=== PATIENT | male | born 1980 | race Caucasian/White ===

== ENCOUNTER 2024-03-27 10:28 | Emergency (ER) | payer OTHER, SELFPAY ==
[2024-03-27 11:22] VITALS: BP 172/113; PULSE 78; RESP 18; TEMP 36.9; O2SAT 98; BMI 27.3
--- OUTSIDE RECORDS SUMMARY | 2024-03-27 14:50 | XMS_ITS | Clinical Summary ---
Author Organization [facility] Address [address] [place] [phone] Phone Care Team Providers Care Procurement Forester Name Role Phone Pcp, None MD Primary Care Provider Unavailabl e Allergies No known active allergies Medications Medication Sig Dispensed Refills Start Date End Date Status cloNIDine (CATAPRES) 0.2 MG tablet Take 0.2 mg by mouth every 6 (six) hours as needed Active hydrOXYzine (VISTARIL) 100 MG capsule Take 100 mg by mouth 3 (three) times a day as needed for itching Active buprenorphine-naloxone (SUBOXONE) 8-[address] 3 tablets under the tongue daily Active Active Problems Problem Noted Date Diagnosed Date Hyperglycemia 02/20/2019 Fatigue 02/20/2019 Social History Tobacco Use Types Packs/Day Years Used Date Smoking Tobacco: Some Days Cigarettes Smokeless Tobacco: Never Alcohol Use Standard Drinks/Week Comments Yes 0 (1 standard drink = 0.6 oz pur e alcohol) Sex and Gender Information Value Date Recorded Sex Assigned at Not on file Gender Identity Not on file Sexual Orientation Not on file Last Filed Vital Signs Vital Sign Reading Time Taken Comments Blood Pressure 140/95 02/22/2019 3:36 PM EST Pulse 65 02/22/2019 3:36 PM EST Temperature 36.6 ??C (97.8 ??F) 02/22/2019 3:36 PM ES T Respiratory Rate 18 02/22/2019 3:36 PM EST Oxygen Saturation 97% 02/22/2019 3:36 PM EST Inhaled Oxygen Concentration - - Weight 72 kg (158 lb 11.7 oz) 02/20/2019 11:30 P M EST Height 170.2 cm (5' 7 ) 02/20/2019 11:30 PM EST Body Mass Index 24.86 02/20/2019 11:30 PM EST Plan of Treatment Not on file Advance Directives * Full Code (Latest Code Status on File) Date Activated Date Inactivated Comments 02/20/2019 8:25 PM Care Teams Procurement Forester Relationship Specialty Start Date End Date Pcp, None, PCP - General 02/20/19
--- OUTSIDE RECORDS SUMMARY | 2024-03-27 14:50 | XMS_ITS | Clinical Summary ---
Author Organization [facility] Address [address] [place] [address] Care Team Providers Care Wood Preparation Supervisor Name Role Phone Zulma Clark MD Primary Care Provider [phone] Allergies No known active allergies Medications doxycycline (Vibramycin) 100 MG capsule Take 100 mg by mouth in the morning and 100 mg before bedtime. Take with at least 8 ounces (large glass) of water, do not lie down for 30 minutes after For 14 days, started 12/16/22. Active Blood Glucose Monitoring Suppl ([employer]Style Lite) w/Device kit 3 Active PHENobarbital (Luminal) 48.6 mg split tablet Take 48.6 mg by mouth in the morning and 48.6 mg at noon and 48.6 mg in the evening and 48.6 mg before bedtime. Active insulin glargine (Semglee) 100 UNIT/ML injection Inject 22 Units under the skin in the morning and 22 Units before bedtime. Active methadone (Dolophine) 10 MG tablet Take 120 mg by mouth 1 (one) time each day. Active Insulin Lispro (HUMALOG SC) Inject under the skin 3 (three) times a day Sliding scale. Active acetaminophen (Tylenol) 500 MG tablet Take 1,000 mg by mouth every 6 (six) hours if needed for mild pain (1-3). Active ibuprofen (Advil,Motrin) 600 MG tablet Take 600 mg by mouth every 6 (six) hours if needed for mild pain (1-3). Active Dicyclomine HCl (BENTYL PO) Take 40 mg by mouth every 6 (six) hours if needed. Active methocarbamol (Robaxin) 750 MG tablet Take 750 mg by mouth in the morning and 750 mg at noon and 750 mg in the evening and 750 mg before bedtime. Active hydrOXYzine HCl (Atarax) 50 MG tablet Take 50 mg by mouth 4 (four) times a day if needed for itching. Active cloNIDine (Catapres) 0.1 MG tablet Take 0.1 mg by mouth 4 (four) times a day if needed (anxiety). Active ondansetron (Zofran) 8 MG tablet Take 8 mg by mouth every 6 (six) hours if needed for nausea or vomiting. Active calcium carbonate (Tums) 500 MG chewable tablet Chew 500 mg 4 (four) times a day if needed for indigestion or heartburn. Active loperamide (Imodium) 2 MG capsule Take 4 mg by mouth 1 (one) time each day if needed for diarrhea Additional 2mg PRN after each loose bowel movement x 6. Active Active Problems No known active problems Social History Tobacco Use Types Packs/Day Years Used Date Smoking Tobacco: Never Assessed Sex and Gender Information Value Date Recorded Sex Assigned at Not on file Legal Sex Male 9:51 AM EDT Gender Identity Not on file Sexual Orientation Not on file Last Filed Vital Signs Vital Sign Reading Time Taken Comments Blood Pressure 119/81 12/17/2022 9:52 AM EDT Pulse 58 12/17/2022 9:52 AM EDT Temperature 37.1 ??C (98.8 ??F) 12/17/2022 9:52 AM ED T Respiratory Rate 16 12/17/2022 9:52 AM EDT Oxygen Saturation 97% 12/17/2022 9:52 AM EDT Inhaled Oxygen Concentration - - Weight 72.6 kg (160 lb) 12/17/2022 9:52 AM EDT Height 167.6 cm (5' 6 ) 12/17/2022 9:52 AM EDT Body Mass Index 25.82 12/17/2022 9:52 AM EDT Plan of Treatment Not on file Insurance [facility] Care Teams Wood Preparation Supervisor Relationship Specialty Start Date End Date Zulma Clark MD [address] [place] [phone] PCP - General [employer] Network Architect 12/17/22
--- OUTSIDE RECORDS SUMMARY | 2024-03-27 14:50 | XMS_ITS | Clinical Summary ---
Author Organization [facility] Address [address] [facility] Main Number: [phone] (23/09) [place] [address] Care Team Providers Care Drying Oven Attendant Name Role Phone Zulma Bone MD Primary Care Provider [phone] Zulma Bone MD Unavailable Allergies No known active allergies Medications Medication Sig Dispensed Refills Start Date End Date Status ibuprofen (ADVIL,MOTRIN) 600 mg tablet Take 1 tablet (600 mg total) by mouth every 8 (eight) hours as needed. 30 tablet 12/24/2023 Active benzonatate (TESSALON) 100 mg capsule Take 1 capsule (100 mg total) by mouth 3 (three) times a day as needed for cough. Swallow capsule(s) whole; do NOT chew, break or empty contents of the capsule. 30 capsule 12/24/2023 Active insulin glargine 100 unit/mL (LANTUS) vial Inject 22 Units under the skin 2 (two) times a day for 30 days. 13.2 mL 12/30/2023 Active insulin lispro 100 units/mL (HUMALOG) PEN Inject 10 Units under the skin 3 (three) times a day before meals for 30 days. 9 mL 12/30/2023 Active ULTICARE PEN NEEDLE 32 gauge x 5/32 Ndle 1 each by Miscellaneous route as needed. 90 each 12/31/2023 Active Encounters Date Type Department Care Team Description 12/31/2023 12:28 PM EDT - 12/31/2023 4:57 PM EDT Emergency [facility] [place] [address] [place] [id number] Aditi Arora MD Leigh Ann Austin MD Hyperglycemia (Primary Dx) Discharge Disposition: Another Health Care Institution Not Defined 12/31/2023 2:40 AM EDT - 12/31/2023 8:07 AM EDT Emergency [facility] [place] [address] [place] [address] Discharge Disposition: Eloped 12/31/2023 Travel 12/30/2023 8:27 AM EDT - 12/30/2023 2:18 PM EDT Emergency [facility] [place] [address] [place] [address] Kasi Graham DO Acute cough (Primary Dx) Discharge Disposition: Home or Self Care 12/30/2023 Travel 12/29/2023 9:55 PM EDT - 12/30/2023 6:26 AM EDT Emergency [facility] [place] [address] [place] [address] Avril Cifuentes MD Hyperglycemia (Primary Dx) Discharge Disposition: Home or Self Care 12/26/2023 3:07 PM EDT - 12/26/2023 5:25 PM EDT Emergency [facility] [place] [address] [place] [address] Discharge Disposition: LWOBS from Last 3 Months Social History Tobacco Use Types Packs/Day Years Used Date Smoking Tobacco: Every Day Cigarettes Smokeless Tobacco: Never Tobacco Cessation:Ready to Q uit: Not Asked; Counseling Given: Not Answered Alcohol Use Standard Drinks/Week Comments Never 0 (1 standard drink = 0.6 oz pur e alcohol) Housing Answer Date Recorded What is your living situation today? I d on't have a steady place to live (living with others, hotel, assisted, outside on the street, on a bench, in a car, abandoned building, bus or train station, in a park) 12/30/2023 Medications Answer Date Recorded Do you have trouble paying f or prescriptions? Patient declined to answer 12/30/2023 Utilities Answer Date Recorded Do you have trouble paying f or utilites (heat, electricity, internet, or phone bill)? Patient declined to answer 12/30/2023 Food Answer Date Recorded Within the past 12 months, w ere you worried whether your food would run out before you got money to buy more? Patient declined to answer 12/30/2023 Not on file 12/30/2023 Transportation Answer Date Recorded Do you have trouble getting transportation to medical appointments? Patient declined to answer 12/30/2023 Sex and Gender Information Value Date Recorded Sex Assigned at Male 12/22/2023 4:11 AM EDT Gender Identity Male 12/22/2023 4:11 AM EDT Sexual Orientation Straight 12/22/2023 4: 11 AM EDT Last Filed Vital Signs Vital Sign Reading Time Taken Comments Blood Pressure 133/78 12/31/2023 4:22 PM EDT Pulse 55 12/31/2023 4:22 PM EDT Temperature 36.4 ??C (97.6 ??F) 12/31/2023 1:14 PM ED T Respiratory Rate 15 12/31/2023 4:22 PM EDT Oxygen Saturation 96% 12/31/2023 4:22 PM EDT Inhaled Oxygen Concentration - - Weight 72 kg (158 lb 11.7 oz) 12/31/2023 12:03 P M EDT Height 170 cm (5' 6.93 ) 12/31/2023 12:03 PM EDT Body Mass Index 24.91 12/31/2023 12:03 PM EDT Plan of Treatment Health Maintenance Due Date Last Done Comments HIV Lifetime Screening 1981 Hepatitis B sAg Lifetime Screening 1981 LIPID PANEL 1981 THRIVE SCREENING 1981 Tobacco Cessation Counseling (#1) 1981 Oral Health Screen 1981 HEIP Disability Screen 1986 Pneumonia Vaccine 0-64 (1 of 2 - PCV) 1987 BEHAVIORAL HEALTH SCREEN 1993 Psych Substance Use Screen 1993 DTAP/TDAP VACCINE (1 - Tdap) 01/03/2000 COVID-19 Vaccine (3 - season) 2023 10/16/2020, 05/17/2020 INFLUENZA VACCINE (#1) 2023 Zoster Vaccine (1 of 2) 2031 Hepatitis C Antibody Lifetime Screening Completed 12/31/2023, 07/03/2022 HPV VACCINES Aged Out No longer eligi ble based on patient's age to complete this topic IPV VACCINES Aged Out No longer eligi ble based on patient's age to complete this topic ROTAVIRUS VACCINES Aged Out No longer eligible based on patient's age to complete this topic Procedures Procedure Name Priority Date/Time Associated Diagnosis Comments POCT GLUCOSE 12/31/2023 4:10 PM EDT POCT GLUCOSE 12/31/2023 2:42 PM EDT URINALYSIS WITH MICROSCOPIC Nursing - STAT 12/31/2023 1:55 PM EDT URINE CULTURE STAT 12/31/2023 1:55 PM EDT HCV CONFIRMATORY AND VIRAL LOAD, RNA, PCR 12/31/2023 1:03 PM EDT VENOUS BLOOD GAS W/ LYTES (ED) Nursing - STAT 12/31/2023 1:03 PM EDT HCV AB REFLEX TO CONFIRMATORY/VIRAL LOAD AND GENOTYPE Nursing - STAT 12/31/2023 1:03 PM EDT COMPREHENSIVE METABOLIC PANEL Nursing - STAT 12/31/2023 1:03 PM EDT CBC AND DIFFERENTIAL Nursing - STAT 12/31/2023 1:03 PM EDT ECG 12-LEAD STAT 12/31/2023 12:50 PM EDT POCT GLUCOSE 12/31/2023 12:11 PM EDT ED PREMANAGE Routine 12/31/2023 11:39 AM EDT POCT GLUCOSE 12/31/2023 2:51 AM EDT ED PREMANAGE Routine 12/31/2023 2:41 AM EDT POCT GLUCOSE 12/30/2023 2:08 PM EDT POCT GLUCOSE 12/30/2023 1:16 PM EDT POCT GLUCOSE 12/30/2023 11:21 AM EDT POCT GLUCOSE 12/30/2023 10:15 AM EDT SARS-COV-2 (COVID-19), INFLUENZA A/B, PCR (POCT) 12/30/2023 9:39 AM EDT XR CHEST PA AND LATERAL STAT 12/30/2023 9:32 AM EDT POCT GLUCOSE 12/30/2023 9:04 AM EDT POCT GLUCOSE 12/30/2023 8:21 AM EDT POINT OF CARE COVID-19 AND FLU A/B PCR SPECIMEN COLLECTION Nursing - STAT 12/30/2023 8:18 AM EDT ED PREMANAGE Routine 12/30/2023 8:05 AM EDT POCT GLUCOSE 12/30/2023 4:50 AM EDT POCT GLUCOSE 12/30/2023 2:56 AM EDT POCT GLUCOSE 12/30/2023 12:43 AM EDT POCT GLUCOSE 12/29/2023 11:38 PM EDT URINALYSIS WITH MICROSCOPIC Nursing - STAT 12/29/2023 11:30 PM EDT LIPASE 12/29/2023 10:29 PM EDT VENOUS BLOOD GAS W/ LYTES (ED) Nursing - STAT 12/29/2023 10:29 PM EDT AMYLASE Nursing - STAT 12/29/2023 10:29 PM EDT COMPREHENSIVE METABOLIC PANEL Nursing - STAT 12/29/2023 10:29 PM EDT CBC AND DIFFERENTIAL Nursing - STAT 12/29/2023 10:29 PM EDT ECG 12-LEAD STAT 12/29/2023 10:28 PM EDT POCT GLUCOSE 12/29/2023 10:22 PM EDT ED PREMANAGE Routine 12/29/2023 1:10 PM EDT ED PREMANAGE Routine 12/26/2023 3:08 PM EDT from Last 3 Months Results * (ABNORMAL) Glucose, Point of Care (12/31/2023 4:10 PM EDT) Only the most recent of15 resultswithin the time period is included. Glucose, Point Of Care 415(HH) 70 - 110 MG/DL 12/31/2023 4:13 PM EDT [facility] Comment: CRITICAL ALERT VALUE. NOTIFIED MD/RN 12/31/2023 4:10 PM EDT 12/31/2023 4:13 PM EDT Leigh Ann Austin MD POCT ORDERABLES - DEVICE [facility] CLIA [id number] [address] [facility] [place] [address], * (ABNORMAL) Urinalysis, Complete with Microscopic (12/31/2023 1:55 PM EDT) Only the most recent of2 resultswithin the time period is included. Color, Urinalysis STRAW 12/31/2023 2:24 PM EDT [facility] Clarity, Urinalysis CLEAR 12/31/2023 2:24 PM EDT [facility] Specific Ceres, Urinalysis 1.027 1.005 - 1.030 12/31/2023 2:24 PM EDT [facility] PH, Urinalysis 6.0 5.0 - 8.0 12/31/2023 2:24 PM EDT [facility] Protein, Urinalysis NEG NEG 12/31/2023 2:24 PM EDT [facility] Glucose, Urinalysis 3+(A) NEG 12/31/2023 2:24 PM EDT [facility] Ketone, Urinalysis TRACE(A) NEG 12/31/2023 2:24 PM EDT [facility] Bilirubin, Urinalysis NEG NEG 12/31/2023 2:24 PM EDT [facility] Blood,Urinalysi s 1+(A) NEG 12/31/2023 2:24 PM EDT [facility] Nitrite, Urinalysis NEG NEG 12/31/2023 2:24 PM EDT [facility] Leukocyte Esterase NEG NEG 12/31/2023 2:24 PM EDT [facility] Urobilinogen, Urinalysis NEG 0.2 - 1.0 MG/DL 12/31/2023 2:24 PM EDT [facility] RBC 0 TO 3 0 TO 3 /HPF 12/31/2023 2:24 PM EDT [facility] WBC 0 TO 5 0 TO 5 /HPF 12/31/2023 2:24 PM EDT [facility] Bacteria NEG NEG /HPF 12/31/2023 2:24 PM EDT [facility] Squamous Epithelial 0 TO 4 0 TO 4 /HPF 12/31/2023 2:24 PM EDT [facility] 12/31/2023 1:55 PM EDT 12/31/2023 2:11 PM EDT Yue Lauren PA-C URINE ORDERABLES [facility] CLIA [id number] [address] [facility] [place] [address], * Urine Culture (12/31/2023 1:55 PM EDT) Specimen Description URINE (CLEAN VOIDED) [facility] Results NO GROWTH AT <1,000 CFU/ML 01/01/2024 8:38 AM EDT [facility] Urine URINE SPECIMEN OBTAINED BY CLEAN CATCH PROCEDURE / Unknown 12/31/2023 1:55 PM EDT 12/31/2023 2:11 PM EDT Yue Lauren PA-C MICROBIOLOGY - GENER AL ORDERABLES Performing Organization Address [facility] Co de Phone Number [facility] CLIA [id number] [place] [id number], [place] * HCV Confirmatory and Viral Load, RNA, PCR (12/31/2023 1:03 PM EDT) [facility] HCV RNA Confirmatory by Real Time PCR No current HCV infection. No current HCV infection. 01/01/2024 1:34 PM EDT [facility] Comment:No further testing i ndicated. HCV RNA Quantitative By Real Time PCR Target Not Detected Target Not Detected IU/mL 01/01/2024 1:34 PM EDT [facility] HCV RNA Quantitative Log Value Target Not Detected Target Not Detected LOG IU/mL 01/01/2024 1:34 PM EDT [facility] Comment: HCV RNA was not detected. Not Detected does not ruleout Hepatitis C virus RNA concentrations below the level of detection of the assay or the presence of PCR inhibitors in the patient specimen. ? This assay is not intended for use as a screening test for the presence of HCV in blood or blood products. Assay method is Alexei Smith 6800 HCV assay. The quantitative range of this assay for a sample without dilution is 15 IU/mL to 100,000,000 IU/mL (1.18 log to 8 log IU/mL). 12/31/2023 1:03 PM EDT 12/31/2023 1:29 PM EDT Yue Lauren PA-C LAB BLOOD ORDERABLES Performing Organization Address [facility] Co de Phone Number [facility] CLIA [id number] [place] [address], * (ABNORMAL) HCV Ab reflex to Confirmatory/Viral load and Genotype (12/31/2023 1:03 PM EDT) Pathologist [facility] Hepatitis C Antibody REACTIVE( A) NON-REACT LADAN 12/31/2023 2:38 PM EDT [facility] Comment:A reactive HCV antib johann result, or an equivocal result, is not a final diagnostic for current HCV infection. See separate result for the reflexed HCV Confirmatory and Viral Load RNA PCR test. 12/31/2023 1:03 PM EDT 12/31/2023 1:29 PM EDT Yue Lauren PA-C LAB BLOOD ORDERABLES [facility] CLIA [id number] [address] [facility] [place] [address], * (ABNORMAL) Venous Blood Gas w/ Lytes (ED) (12/31/2023 1:03 PM EDT) Only the most recent of2 resultswithin the time period is included. Pt Temp, Venous 37.0 DEG C 1:40 PM EDT [facility] Insp O2, Venous NOT AVAILABLE % 2023 1:40 PM EDT [facility] PH Venous 7.37 7.32 - 7.42 12/31/2023 1:40 PM EDT [facility] PCo2, Venous 48.0(H) 35 - 45 MM HG 12/31/2023 1:40 PM EDT [facility] HCo3 Venous 27.7 22 - 29 MMOL/L 12/31/2023 1:40 PM EDT [facility] PO2 Venous 65(H) 30 - 50 MM HG 12/31/2023 1:40 PM EDT [facility] O2 Saturation, Venous 93(H) 65 - 80 % 12/31/2023 1:40 PM EDT [facility] Sodium, Whole Blood Venous 127(L) 135 - 148 MMOL/L 12/31/2023 1:40 PM EDT [facility] Potassium, Whole Blood Venous 5.0 3.5 - 5.3 MMOL/L 12/31/2023 1:40 PM EDT [facility] Comment:For serum, the lower end of the reference range may be higher by 0.2 to 0.4 mmol/L. Chloride, Whole Blood Venous 89(L) 98 - 106 MMOL/L 12/31/2023 1:40 PM EDT [facility] TCO2, Whole Blood Venous 29.2(H) 23 - 29 MMOL/L 12/31/2023 1:40 PM EDT [facility] Hemoglobin, Whole Blood Venous 13.1(L) 13.5 - 18.0 G/DL 12/31/2023 1:40 PM EDT [facility] Comment:The results of this assay should be interpreted in the context of the patient's lzh-obvfobel-rt- and additional relevant clinical and laboratory data. Anion Gap Without Potassium, Venous 10 12/31/2023 1:40 PM EDT [facility] Base Excess,Venous 1.7 MMOL/L 12/31/2023 1:40 PM EDT [facility] Comment:REFERENCE RANGE: (-3 .8 TO +4.2 MMOL/L) Free Calcium, Whole Blood Venous 4.8 4.5 - 5.3 MG/DL 12/31/2023 1:40 PM EDT [facility] Glucose, Whole Blood Venous 722(HH) 70 - 100 MG/DL 12/31/2023 1:57 PM EDT [facility] Comment: TEST PERFORMED BY ALTERNATE METHODOLOGY CRITICAL ALERT VALUE. RESULT CALLED TO AND READ BACK BY: [id number] XIN MATT Venous 12/31/2023 1:03 PM EDT 12/31/2023 1:12 PM EDT Yue Lauren PA-C LAB BLOOD ORDERABLES [facility] CLIA [id number] [address] [facility] [address] * (ABNORMAL) CBC and differential (12/31/2023 1:03 PM EDT) Only the most recent of2 resultswithin the time period is included. WBC 5.3 4.0 - 11.0 K/UL 12/31/2023 1:25 PM EDT [facility] RBC 4.30(L) 4.40 - 5.60 M/UL 12/31/2023 1:25 PM EDT [facility] Comment:The results of this assay should be interpreted in the context of the patient's doe-wkctaglj-lf- and additional relevant clinical and laboratory data. Hemoglobin 12.6(L) 13.5 - 17.5 G/DL 12/31/2023 1:25 PM EDT [facility] Comment:The results of this assay should be interpreted in the context of the patient's puh-egzlbsdo-kv- and additional relevant clinical and laboratory data. Hematocrit 38.9(L) 40.0 - 51.0 % 12/31/2023 1:25 PM EDT [facility] Comment:The results of this assay should be interpreted in the context of the patient's sbh-hmlbgmbp-jf- and additional relevant clinical and laboratory data. MCV 91 80 - 97 FL 12/31/2023 1:25 PM EDT [facility] MCH 29.3 27.0 - 33.0 PG 12/31/2023 1:25 PM EDT [facility] MCHC 32.4 32.0 - 36.0 G/DL 12/31/2023 1:25 PM EDT [facility] Platelet 266 150 - 400 K/UL 12/31/2023 1:25 PM EDT [facility] RBC Dist Width 12.8 12.0 - 14.5 % 12/31/2023 1:25 PM EDT [facility] NRBC (Percent) 0.0 0.0 /100 WBC 12/31/2023 1:25 PM EDT [facility] Absolute NRBC 0.00 0.0 K/UL 12/31/2023 1:25 PM EDT [facility] Poly 61 40 - 75 % 12/31/2023 1:25 PM EDT [facility] Lymph 29 15 - 54 % 12/31/2023 1:25 PM EDT [facility] [place] 7 4 - 13 % 12/31/2023 1:25 PM EDT [facility] Eos 1 0 - 7 % 12/31/2023 1:25 PM EDT [facility] Baso 1 0 - 1 % 12/31/2023 1:25 PM EDT [facility] Absolute Poly 3.2 1.8 - 7.0 K/UL 12/31/2023 1:25 PM EDT [facility] Absolute Lymph 1.5 1.1 - 3.5 K/UL 12/31/2023 1:25 PM EDT [facility] Absolute [place] 0.4 0.2 - 0.9 K/UL 12/31/2023 1:25 PM EDT [facility] Absolute Eos 0.1 0.0 - 0.6 K/UL 12/31/2023 1:25 PM EDT [facility] Absolute Baso 0.0 0.0 - 0.1 K/UL 12/31/2023 1:25 PM EDT [facility] Immature Granulocytes (Percent) 1 0 - 1 % 12/31/2023 1:25 PM EDT [facility] Comment:Immature granulocyte s represents either metamyelocytes myelocytes, promyelocytes, or any combination thereof. Absolute Immature Granulocytes 0.0 0.00 - 0.06 K/UL 12/31/2023 1:25 PM EDT [facility] 12/31/2023 1:03 PM EDT 12/31/2023 1:12 PM EDT Yue Lauren PA-C LAB BLOOD ORDERABLES [facility] CLIA [id number] [address] [facility] [address] * (ABNORMAL) Comprehensive Metabolic Panel (12/31/2023 1:03 PM EDT) Only the most recent of2 resultswithin the time period is included. Pathologist [facility] Albumin 3.8 3.5 - 5.0 G/DL 12/31/2023 1:48 PM EDT [facility] Bilirubin, Total 0.3 0.3 - 1.2 MG/DL 12/31/2023 1:48 PM EDT [facility] Calcium 9.4 8 - 10.5 MG/DL 12/31/2023 1:48 PM EDT [facility] CO2 26.0 19 - 28 MMOL/L 12/31/2023 1:48 PM EDT [facility] Comment:Elevated triglycerid e levels (>1000 mg/dL) may cause falsely low bicarbonate results. If clinically indicated, a venous blood gas should be ordered to confirm the bicarbonate result. Chloride 89(L) 98 - 110 MMOL/L 12/31/2023 1:48 PM EDT [facility] Glucose 730(HH) 70 - 100 MG/DL 12/31/2023 1:48 PM EDT [facility] Comment: CRITICAL ALERT VALUE. RESULT CALLED TO AND READ BACK BY: BULMARO ??NAT ESTRADA AT 1345 XT [id number] Alkaline Phosphatase, Total 74 25 - 100 U/L 12/31/2023 1:48 PM EDT [facility] Comment:The results of this assay should be interpreted in the context of the patient's tpj-cxngtfyn-pg- and additional relevant clinical and laboratory data. Potassium 4.7 3.1 - 5.3 MMOL/L 12/31/2023 1:48 PM EDT [facility] Comment:For serum, the lower end of the reference range may be higher by 0.2 to 0.4 mmol/L. Protein, Total 7.6 6.8 - 8.6 G/DL 12/31/2023 1:48 PM EDT [facility] Sodium 128(L) 135 - 145 MMOL/L 12/31/2023 1:48 PM EDT [facility] ALT(SGPT) 20 9.0 - 67.0 U/L 12/31/2023 1:48 PM EDT [facility] AST(SGOT) 22 13 - 39 U/L 12/31/2023 1:48 PM EDT [facility] Urea Nitrogen (BUN) 19 7 - 25 MG/DL 12/31/2023 1:48 PM EDT [facility] Creatinine 1.25 0.7 - 1.3 MG/DL 12/31/2023 1:48 PM EDT [facility] Comment:The results of this assay should be interpreted in the context of the patient's vtp-dglqagrn-ss- and additional relevant clinical and laboratory data. Estimated GFR 74 >59 mL/min/1.7 3_m2 12/31/2023 1:48 PM EDT [facility] Comment: The calculation of eGFR utilizes the 2020 CKD-EPI creatinine equation. eGFR estimates can be inaccurate and may vary from the true level of kidney function. Specific populations in which an eGFR value may be inaccurate or biased include: acute kidney injury, , extremes of muscle mass, age greater than 80 years old. The results of this assay should be interpreted in the context of the patient's xbo-yobzotwk-qr- and additional relevant clinical and laboratory data. Anion Gap Without Potassium 13 7 - 16 12/31/2023 1:48 PM EDT [facility] 12/31/2023 1:03 PM EDT 12/31/2023 1:12 PM EDT Yue Xin PA-C LAB BLOOD ORDERABLES Performing Organization Address [facility] Co de Phone Number [facility] CLIA [id number] [address] [facility] [place] [address], * (ABNORMAL) ECG 12 lead (12/31/2023 12:50 PM EDT) Only the most recent of2 resultswithin the time period is included. Ventricular Rate 55 BPM MUSE Atrial Rate 55 BPM MUSE P-R Interval 140 ms MUSE QRS Duration 86 ms MUSE QT Interval 502 ms MUSE QTC Calculation(Bez et) 480 ms MUSE P [place] 45 degrees MUSE R [place] 65 degrees MUSE T [place] 48 degrees MUSE Diagnosis I51.7 ICD-10 code for Right & Left ventricular hypertrophy Sinus bradycardia Minimal voltage criteria for LVH, may be normal variant Prolonged QT Abnormal ECG When compared with ECG of 29-Dec-2023 22:28, No significant change was found (A) MUSE 12/31/2023 12:5 0 PM EDT 2024 9:29 AM EDT Yue Lauren PA-C ECG ORDERABLES Performing Organization Address [facility] Co de Phone Number MUSE * ED PreManage (12/31/2023 11:39 AM EDT) Only the most recent of5 resultswithin the time period is included. Pathologist [facility] ED PreManage KAVITHA NOTIFICATION: DORENE WAGGONER Security Events No recent Security Events currently on file CARE PROVIDERS Name ?Phone ?Type ?Service Dates ---- ?----- ?---- ? LAI COLLINS ? [phone] ? Family Medicine ? Unknown - Current VANITA THOMAS ?[id number] ? Emergency Medicine ?Unknown - Current JonathonGuyZULMA ROBERSON ? [id number] ? Family Medicine ? Unknown - Current LULA LOPEZ ?[phone] ? Emergency Medicine ?Unknown - Current ED/UCC VISIT TRACKING (3 MO.) Visit Date ?Location ?City ST ?Type ? Dx/Complaint ?-------- ?------- ?---- ? 12/31/2023 11:39 ?[facility] ? [place] ?Emergency ?-MED CLEAR DETOX 12/31/2023 02:40 ?[facility] ? [place] ?Emergency ?-MIGRAINE 12/30/2023 08:27 ?[facility] ? [place] ?Emergency ?-Acute cough ?-Cough ?-HEAD COLD PHLEM ?-High Blood Sugar- No Symptoms 12/29/2023 21:55 ?[facility] ? [place] ?Emergency ?-CANT KEEP ANYTHING DOWN ?-Emesis 12/29/2023 21:55 ?[facility] ? [place] ?Emergency ?-Hyperglycemia, unspecified 12/26/2023 15:07 ?[facility] ? [place] ?Emergency ?-MED REFILL 12/23/2023 20:59 ?[facility] ? [place] ?Emergency ?-Pneumonia, unspecified organism ?-Cold Like Symptoms ?-MEDICAL PROBLEM 12/23/2023 00:56 ?[facility] ?[place]. [place] ?Emergency ?-Other psychoactive substance use, unspecified, ?uncomplicated ?-Pneumonia, unspecified organism ?-detox and febrile ?-eval/ 12/22/2023 01:42 ?[facility] ? [place] ?Emergency ?-Viral infection, unspecified ?-Cough ?-Headache- New Onset Or New Symptoms ?-MEDICAL PROBLEM 10/12/2023 03:28 ?[facility] ?[place]. [place] ?Emergency ?-Nicotine dependence, unspecified, uncomplicated ?-Palpitations INPATIENT VISIT TRACKING (1 MO.) Visit Date ?Location ?City ST ?Type ?Dx/Complaint ?-------- ?------- ?---- ? ED VISIT COUNT (12 MO.) Visits ?Location ------ ?--------- 8 ? [facility] 1 ? [facility] 1 ? [facility] 1 ? [facility] 1 ? [facility] 12 ?Total Note: Visits indicate total known visits. -----Kavitha has no Care Guidelines for this patient. [email or web address] PREMANAGE 12/31/2023 11:3 9 AM EDT Unidentified Provider [facility] PRE[facility]NA[facility] N OTIFICATION PREMANAGE * SARS-CoV-2 (COVID-19), Influenza A/B, PCR (POCT) (12/30/2023 9:39 AM EDT) Source Anterior Nares 12/30/2023 9:38 AM EDT [facility] SARS-CoV-2 (COVID-19), Point of Care Negative Negative 12/30/2023 9:38 AM EDT [facility] Comment: The performance of this assay has not been validated for the screening of asymptomatic persons. Negative results do not preclude SARS-Cov-2 infection and should not be used as the sole basis for treatment or other patient management decisions. [facility] is certified under CLIA88 as a high-complexity laboratory experienced in the use of in vitro molecular diagnostic assays and procedures. The Smith SARS-CoV-2 Nucleic Acid Test for use on the Smith Carol System is also authorized for use at the Point of Care (POC), i.e., inpatient care settings operating under a CLIA Certificate of Waiver, Certificate of Compliance, or Certificate of Accreditation. This test was performed by the Smith SARS-CoV-2 Nucleic Acid Test for use on the Smith Carol System. Influenza A, Point of Care Negative Negative 12/30/2023 9:38 AM EDT [facility] Influenza B, Point of Care Negative Negative 12/30/2023 9:38 AM EDT [facility] 12/30/2023 9:39 AM EDT 12/30/2023 9:38 AM EDT Kasi Graham DO BODY FLUIDS AND STOO LS ORDERABLES [facility] CLIA [id number] [address] [facility] [place] [address], * XR Chest, 2 View (12/30/2023 9:32 AM EDT) Anatomical Region Laterality Modality Chest Computed Radiogr aphy 12/30/2023 9:34 AM EDT Impressions 12/30/2023 9:34 AM EDT No active chest disease. I personally reviewed the study and agree with the dictated report. Electronically signed by: Ayse Bowser M.D. Signed date and time: 12/30/2023 9:34 AM Narrative 12/30/2023 9:34 AM EDT EXAMINATION: Chest, 2 views HISTORY: cough with productive sputum TECHNIQUE: PA and Lateral views. COMPARISON: 12/23/2023, XR CHEST PA AND LATERAL FINDINGS: Lines and tubes: None. Heart and mediastinum: Normal. Lungs and pleura: Lungs are clear. No pneumothorax. No pleural effusions. Bones: No acute osseous abnormality. Procedure Note Ayse Bowser MD - 12/30/2023 EXAMINATION: Chest, 2 views HISTORY: cough with productive sputum TECHNIQUE: PA and Lateral views. COMPARISON: 12/23/2023, XR CHEST PA AND LATERAL FINDINGS: Lines and tubes: None. Heart and mediastinum: Normal. Lungs and pleura: Lungs are clear. No pneumothorax. No pleuraleffusions. Bones: No acute osseous abnormality. IMPRESSION: No active chest disease. I personally reviewed the study and agree with the dictated report. Electronically signed by: Ayse Bowser M.D. Signed date and time: 12/30/2023 9:34 AM Tricia Reddy PA-C IMG DIAGNOSTIC IMAGI NG ORDERABLES * Point of Care COVID-19 and Flu A/B PCR Specimen Collection (12/30/2023 8:18 AM EDT) Comment Please see separate SARS-CoV-2 (COVID-19), INFLUENZA A/B, Point of Care testing report for this date. 12/30/2023 10:02 AM EDT [facility] Anterior Nares 12/30/2023 8: 18 AM EDT 12/30/2023 8:25 AM EDT Kasi Graham DO BODY FLUIDS AND STOO LS ORDERABLES [facility] CLIA [id number] [address] [facility] [address] [place] [address], * (ABNORMAL) Lipase (12/29/2023 10:29 PM EDT) Lipase <4(L) 13 - 64 U/L 12/29/2023 11:32 PM EDT [facility] 12/29/2023 10:2 9 PM EDT 12/29/2023 10:32 PM EDT Abdifatah Meza MD LAB BLOOD ORDERABLES [facility] CLIA [id number] [place] [address], * (ABNORMAL) Amylase (12/29/2023 10:29 PM EDT) Amylase 22(L) 26 - 131 U/L 12/29/2023 11:32 PM EDT [facility] 12/29/2023 10:2 9 PM EDT 12/29/2023 10:32 PM EDT Avril Cifuentes MD LAB BLOOD ORDERABLES Performing Organization Address [facility] Co de Phone Number [facility] CLIA [id number] [place] [address], [place] from Last 3 Months Care Teams Drying Oven Attendant Relationship Specialty Start Date End Date Zulma Bone MD [address] [place] [address] PCP - General 07/03/22 Zulma Bone MD [address] [place] [address] PCP - Insurance 07/03/22
--- OUTSIDE RECORDS SUMMARY | 2024-03-27 14:50 | XMS_ITS | Referral Summary ---
Author Organization [facility] Address [address] [facility] Main Number: [phone] (23/09) [place] [address] Care Team Providers Care Chain Splitter Name Role Phone Zulma Bone MD Primary Care Provider [phone] Zulma Bone MD Unavailable Encounters Date Type Department Care Team Description 12/31/2023 12:28 PM EDT - 12/31/2023 4:57 PM EDT Emergency [facility] Emergency Department [address] [place] [address] [facility], [place] Leigh Ann Hyperglycemia (Primary Dx) Discharge Disposition: Another Health Care Institution Not Defined 12/31/2023 Travel 12/31/2023 2:40 AM EDT - 12/31/2023 8:07 AM EDT Emergency [facility] Emergency Department [address] [place] [address] Discharge Disposition: Eloped 12/30/2023 Travel 12/30/2023 8:27 AM EDT - 12/30/2023 2:18 PM EDT Emergency [facility] Emergency Department [address] [place] [address] Kasi Graham DO Acute cough (Primary Dx) Discharge Disposition: Home or Self Care 12/29/2023 9:55 PM EDT - 12/30/2023 6:26 AM EDT Emergency [facility] Emergency Department [address] [place] [address] Avril Cifuentes MD Hyperglycemia (Primary Dx) Discharge Disposition: Home or Self Care 12/26/2023 3:07 PM EDT - 12/26/2023 5:25 PM EDT Emergency [facility] Emergency Department [address] [place] [address] Discharge Disposition: LWOBS from Last 3 Months Allergies No known active allergies Medications Medication [...] route as needed. 90 each 12/31/2023 Active Social History Tobacco Use Types Packs/Day Years [...] place to live (living with others, hotel, residential, outside on the street, on a bench, [...] 12/31/2023 12:03 PM EDT Plan of Treatment Not on file Procedures Procedure Name Priority Date/Time Associated Diagnosis [...] of15 resultswithin the time period is included. [facility] Glucose, Point Of Care 415(HH) 70 - 110 MG/DL 12/31/2023 4:13 PM EDT [facility] Comment: CRITICAL ALERT VALUE. NOTIFIED MD/RN 12/31/2023 4:10 PM EDT 12/31/2023 4:13 PM EDT Leigh Ann Austin MD POCT ORDERABLES - DEVICE [facility] CLIA [id number] [address] [facility] [place] [address], [place] * (ABNORMAL) Urinalysis, Complete with Microscopic (12/31/2023 1:55 PM EDT) Only the most recent of2 resultswithin the time period is included. Color, Urinalysis STRAW 12/31/2023 2:24 PM EDT [facility] Clarity, Urinalysis CLEAR 12/31/2023 2:24 PM EDT [facility] Specific Melvin, Urinalysis 1.027 1.005 - 1.030 12/31/2023 2:24 [...] 1:55 PM EDT 12/31/2023 2:11 PM EDT Shaka Lauren PA-C URINE ORDERABLES Performing Organization Address City/[facility] Co de Phone Number [facility] CLIA [id number] [place] [address], * Urine Culture (12/31/2023 1:55 PM EDT) Specimen Description URINE (CLEAN VOIDED) [facility] Results NO GROWTH AT <1,000 CFU/ML 01/01/2024 8:38 AM EDT [facility] Urine URINE SPECIMEN OBTAINED BY CLEAN CATCH PROCEDURE / Unknown 12/31/2023 1:55 PM EDT 12/31/2023 2:11 PM EDT Shaka Lauren PA-C MICROBIOLOGY - GENER AL ORDERABLES Performing Organization Address [facility] Co de Phone Number [facility] CLIA [id number] [place] [address], * HCV Confirmatory and Viral Load, RNA, PCR (12/31/2023 1:03 PM EDT) HCV RNA Confirmatory by Real Time PCR [...] 1:03 PM EDT 12/31/2023 1:29 PM EDT Shaka Lauren PA-C LAB BLOOD ORDERABLES Performing Organization Address [facility] de Phone Number [facility] CLIA [id number] [place] [address], * (ABNORMAL) HCV Ab reflex to Confirmatory/Viral load and Genotype (12/31/2023 1:03 PM EDT) [facility] Hepatitis C Antibody REACTIVE( A) NON-REACT LADAN 12/31/2023 2:38 PM EDT [facility] Comment:A reactive HCV antib johann result, or an equivocal result, is not a final diagnostic for current HCV infection. See separate result for the reflexed HCV Confirmatory and Viral Load RNA PCR test. 12/31/2023 1:03 PM EDT 12/31/2023 1:29 PM EDT Shaka Lauren PA-C LAB BLOOD ORDERABLES Performing Organization Address [facility] de Phone Number [facility] CLIA [id number] [place] [address], * (ABNORMAL) Venous Blood Gas w/ Lytes (ED) (12/31/2023 1:03 PM EDT) Only the most recent of2 resultswithin the time period is included. Pathologist [facility] Pt Temp, Venous 37.0 DEG C 1:40 [...] interpreted in the context of the patient's zau-libvsijp-zt- and additional relevant clinical and laboratory data. [...] RESULT CALLED TO AND READ BACK BY: [id number] JENNIFER SHAKA Venous 12/31/2023 1:03 PM EDT 12/31/2023 1:12 PM EDT Shaka Lauren PA-C LAB BLOOD ORDERABLES [facility] CLIA [id number] [address] [facility] [place] [address], [place] * (ABNORMAL) CBC and differential (12/31/2023 1:03 PM EDT) Only the most recent of2 resultswithin the time period is included. WBC 5.3 4.0 - 11.0 K/UL 12/31/2023 1:25 PM EDT [facility] RBC 4.30(L) 4.40 - 5.60 M/UL 12/31/2023 1:25 PM EDT [facility] Comment:The results of this assay should be interpreted in the context of the patient's tci-lerhkvyv-zo- and additional relevant clinical and laboratory data. Hemoglobin 12.6(L) 13.5 - 17.5 G/DL 12/31/2023 1:25 PM EDT [facility] Comment:The results of this assay should be interpreted in the context of the patient's grt-gxwoytve-cz- and additional relevant clinical and laboratory data. Hematocrit 38.9(L) 40.0 - 51.0 % 12/31/2023 1:25 PM EDT [facility] Comment:The results of this assay should be interpreted in the context of the patient's abh-psgmcgji-xq- and additional relevant clinical and laboratory data. [...] 54 % 12/31/2023 1:25 PM EDT [facility] [place] 7 4 - 13 % 12/31/2023 1:25 PM EDT [facility] Eos 1 0 - 7 % 12/31/2023 1:25 PM EDT [facility] Baso 1 0 - 1 % 12/31/2023 1:25 PM EDT [facility] Absolute Poly 3.2 1.8 - 7.0 K/UL 12/31/2023 1:25 PM EDT [facility] Absolute Lymph 1.5 1.1 - 3.5 K/UL 12/31/2023 1:25 PM EDT [facility] Absolute [place] 0.4 0.2 - 0.9 K/UL 12/31/2023 1:25 [...] 1:03 PM EDT 12/31/2023 1:12 PM EDT Shaka Lauren PA-C LAB BLOOD ORDERABLES [facility] CLIA [id number] [address] [facility] [address] [place] [id number], * (ABNORMAL) Comprehensive Metabolic Panel (12/31/2023 1:03 PM EDT) Only the most recent of2 resultswithin the time period is included. [facility] Albumin 3.8 3.5 - 5.0 G/DL [...] BY: BULMARO ??NAT ESTRADA AT 1345 XT [id number] Alkaline Phosphatase, Total 74 25 - 100 U/L 12/31/2023 1:48 PM EDT [facility] Comment:The results of this assay should be interpreted in the context of the patient's ewo-oecyxpcz-wh- and additional relevant clinical and laboratory data. [...] - 1.3 MG/DL 12/31/2023 1:48 PM EDT [facility] Comment:The results of this assay should be interpreted in the context of the patient's zeb-cposerdk-hl- and additional relevant clinical and laboratory data. [...] interpreted in the context of the patient's xol-xooqiums-yb- and additional relevant clinical and laboratory data. Anion Gap Without Potassium 13 7 - 16 12/31/2023 1:48 PM EDT [facility] 12/31/2023 1:03 PM EDT 12/31/2023 1:12 PM EDT Shaka Lauren PA-C LAB BLOOD ORDERABLES [facility] CLIA [id number] [address] [facility] [address] * (ABNORMAL) ECG 12 lead (12/31/2023 12:50 PM EDT) Only the most recent of2 resultswithin the time period is included. Ventricular Rate 55 BPM MUSE Atrial Rate 55 BPM MUSE P-R Interval 140 ms MUSE QRS Duration 86 ms MUSE QT Interval 502 ms MUSE QTC Calculation(Bez et) 480 ms MUSE P [place] 45 degrees MUSE R [place] 65 degrees MUSE T [place] 48 degrees MUSE Diagnosis I51.7 ICD-10 code for Right & Left ventricular hypertrophy Sinus bradycardia Minimal voltage criteria for LVH, may be normal variant Prolonged QT Abnormal ECG When compared with ECG of 29-Dec-2023 22:28, No significant change was found (A) MUSE 12/31/2023 12:5 0 PM EDT 2024 9:29 AM EDT Shaka Lauren PA-C ECG ORDERABLES MUSE * ED PreManage (12/31/2023 11:39 AM EDT) Only the most recent of5 resultswithin the time period is included. ED PreManage KAVITHA NOTIFICATION: DORENE WAGGONER Security Events No recent Security Events currently on file CARE PROVIDERS Name ?Phone ?Type ?Service Dates ---- ?----- ?---- ? LAI COLLINS ? [phone] ? Family Medicine ? Unknown - Current VANITA THOMAS ?[id number] ? Emergency Medicine ?Unknown - Current ZULMA BONE ? [id number] ? Family Medicine ? Unknown - Current LULA LOPEZ ?[id number] ? Emergency Medicine ?Unknown - Current ED/UCC VISIT TRACKING (3 MO.) Visit Date ?Location ?City ST ?Type ? Dx/Complaint ?-------- ?------- ?---- ? 12/31/2023 11:39 ?[facility] ? [place] ?Emergency ?-MED CLEAR DETOX 12/31/2023 02:40 ?[facility] ? [place] ?Emergency ?-MIGRAINE 12/30/2023 08:27 ?[facility] ? [place] ?Emergency ?-Acute cough ?-Cough ?-HEAD COLD PHLEM ?-High Blood Sugar- No Symptoms 12/29/2023 21:55 ?[facility] ? [place] ?Emergency ?-CANT KEEP ANYTHING DOWN ?-Emesis 12/29/2023 21:55 ?[facility] [place] ?Emergency ?-Hyperglycemia, unspecified 12/26/2023 15:07 ?[facility] [place] ?Emergency ?-MED REFILL 12/23/2023 20:59 ?[facility] ? [place] ?Emergency ?-Pneumonia, unspecified organism ?-Cold Like Symptoms ?-MEDICAL PROBLEM 12/23/2023 00:56 ?[facility] ?[place] ?Emergency ?-Other psychoactive substance use, unspecified, ?uncomplicated ?-Pneumonia, unspecified organism ?-detox and febrile ?-eval/ 12/22/2023 01:42 ?[facility] ? [place] ?Emergency ?-Viral infection, unspecified ?-Cough ?-Headache- New Onset Or New Symptoms ?-MEDICAL PROBLEM 10/12/2023 03:28 ?[facility] ?[place] ?Emergency ?-Nicotine dependence, unspecified, uncomplicated ?-Palpitations INPATIENT VISIT TRACKING (1 MO.) Visit Date ?Location ?City ST ?Type ?Dx/Complaint ?-------- ?------- ?---- ? ED VISIT COUNT (12 MO.) Visits ?Location ------ ?--------- 8 ? [facility] 1 ? [facility] 1 ? [facility] 1 ? [facility] 1 ? [facility] 12 ?Total Note: Visits indicate total known visits. -----Kavitha has no Care Guidelines for this patient. [id number] PREMANAGE 12/31/2023 11:3 9 AM EDT Unidentified Provider [facility] ED PREMANAGE N OTIFICATION PREMANAGE * SARS-CoV-2 [...] for treatment or other patient management decisions. [facility] is certified under CLIA88 as a high-complexity [...] Care Negative Negative 12/30/2023 9:38 AM EDT [facility] 12/30/2023 9:39 AM EDT 12/30/2023 9:38 AM EDT Kasi Graham DO BODY FLUIDS AND STOO LS ORDERABLES [facility] CLIA [id number] [address] [facility] [place] [address], [place] * XR Chest, 2 View (12/30/2023 9:32 [...] for this date. 12/30/2023 10:02 AM EDT [facility] Anterior Nares 12/30/2023 8: 18 AM EDT 12/30/2023 8:25 AM EDT Kasi Graham DO BODY FLUIDS AND STOO LS ORDERABLES [facility] CLIA [id number] [place] [address], * (ABNORMAL) Lipase (12/29/2023 10:29 PM EDT) Lipase <4(L) 13 - 64 U/L 12/29/2023 11:32 PM EDT [facility] 12/29/2023 10:2 9 PM EDT 12/29/2023 10:32 PM EDT Abdifatah Meza MD LAB BLOOD ORDERABLES Performing Organization Address City/[facility]/ZIP Co de Phone Number [facility] CLIA [id number] [place] [address], * (ABNORMAL) Amylase (12/29/2023 10:29 PM EDT) Amylase 22(L) 26 - 131 U/L 12/29/2023 11:32 PM EDT [facility] 12/29/2023 10:2 9 PM EDT 12/29/2023 10:32 PM EDT Avril Cifuentes MD LAB BLOOD ORDERABLES Performing Organization Address City/[facility]/ZIP Co de Phone Number [facility] CLIA [id number] [place] [address], from Last 3 Months Care Teams Chain Splitter Relationship Specialty Start Date End Date Zulma Bone MD [address] [place] [address] PCP - General 07/03/22 Zulma Bone MD [address] [place] [address] PCP - Insurance 07/03/22
--- OUTSIDE RECORDS SUMMARY | 2024-03-27 14:50 | XMS_ITS | Clinical Summary ---
Author Organization [facility] Address [address] [place] [address] Care Team Providers Care Tester Rocket Engine Name Role Phone None, Pcp MD Primary Care Provider Unavailabl e Social History Tobacco Use Types Packs/Day Years Used Date Smoking Tobacco: Never Assessed Sex and Gender Information Value Date Recorded Sex Assigned at Male 08/07/2023 4:22 PM EDT Legal Sex Male 2:07 AM EST Gender Identity Male 04/01/2023 2:07 AM EST Sexual Orientation Not on file Plan of Treatment Health Maintenance Due Date Last Done Comments Blood Pressure 1981 Lipid Panel 1981 Depression Screening 1985 Hepatitis C Screening 1999 COVID-19 Vaccine (3 - 2023-2 5 season) 2023 10/16/2020, 05/17/2020 Influenza Vaccine (#1) 2023 DTaP,Tdap,and Td Vaccines (2 - Td or Tdap) 07/28/2029 07/29/2019 Meningococcal Vaccines Aged Out No lo nger eligible based on patient's age to complete this topic Pneumococcal Vaccine: Pediatrics (0 to 5 Years) and At-Risk Patients (6 to 64 Years) Aged Out No longer eligible b ased on patient's age to complete this topic Insurance [facility] Care Teams Tester Rocket Engine Relationship Specialty Start Date End Date None, Pcp, PCP - General 08/07/23
--- OUTSIDE RECORDS SUMMARY | 2024-03-27 14:50 | XMS_ITS | Patient Health Record ---
Author Organization [facility] Location Address [address] [place] [address] Care Team Providers Care Devulcanizer Operator Name Role Phone Patrick Stewart MD Primary Care Provider Unavailab le REASON FOR REFERRAL No Information MEDICATIONS Medication SIG (Take, Route, Frequency, Duration) Notes Start Date End Date Status Admelog SoloStar 100 UNIT/ML as directed Subcutaneous Act rasta Basaglar KwikPen 100 UNIT/ML as directed Subcutaneous Act rasta Suboxone 8-2 MG 1 film under the ton tigre and allow to dissolve Sublingual Once a day Active Baclofen 10 MG 1 tablet with food o r milk Orally twice daily for 30 day(s) 08/26/2019 Active hydrOXYzine HCl 50 MG 1 tablet as needed Orally every 6 hrs Active traZODone HCl 50 MG 1 tablet at bedtime as needed Orally Once a day Active Gabapentin 400 MG 1 capsule Orally QID for 30 day(s) Active PROBLEMS Problem Type ICD Code Onset Dates Problem Status W/U Status Risk SNOMED Code Notes Problem Paresthesia of skin (R20.2) Active confirmed [id number] PLAN OF TREATMENT No Information Insurance Providers Payer Name Payer Address Payer Phone Subscriber Number Group Number Insured Name Patient Relationship to Insured Coverage Start Date Coverage End Date [facility] [address] [address] [place] [address] [id number] Tian Waggoner Self - patient is the insured MEDICAL (GENERAL) HISTORY Medical History History ICD Code DM type 1 chronic pancreatitis chronic leg pain seasonal allergies hx of opiod abuse
--- OUTSIDE RECORDS SUMMARY | 2024-03-27 14:50 | XMS_ITS | Continuity of Care Document ---
Author Organization [facility] Address [address] [place] [address] Phone Care Team Providers Care Meat Inspector Name Role Phone Leigh Mendoza MD, Zeferino Unavailable Unavai lable Allergies, Adverse Reactions, Alerts Substance Reaction Status Criticality No Known Allergies Active No Inform ation Medications Medication Instructions Dosage Effective Dates (start - stop) Status Comments promethazine 25 mg tablet take 1 tablet by oral route every 4 - 6 hours as needed 25 MG - Active Zofran ODT 4 mg disintegrating tablet take 1 tablet by oral route every [address] on top of the tongue where they will dissolve, then swallow 4 MG - Active Toujeo Max U-300 SoloStar 300 unit/mL (3 mL) subcutaneous insulin pen inject 10 units by subcutaneous route daily - Active ranitidine 150 mg capsule take 1 capsule by oral route 2 times every day - Active Carafate 1 gram tablet take 1 tablet by oral route 2 times every day on an empty stomach 1 hour before meals and at bedtime 1 G - Active folic acid 1 mg tablet take 1 tablet by oral route every day 1 MG - Active magnesium 400 mg (as magnesium oxide) tablet - Active potassium chloride ER 10 mEq capsule,extended release take 1 capsule by oral route every day with food 10 MEQ - Active propranolol 20 mg tablet take 1 by oral route every day 1 - Active thiamine HCl (vitamin B1) 100 mg tablet take 1 tablet by oral route once daily 1 tablet - Active amlodipine 10 mg tablet take 1 tablet by oral route every day 10 MG - Active Procedures Procedure Date OFFICE VISIT NEW 2 Unable To Treat Advance Directives Directive Yes / No Effective Date File Name No Information Encounters Encounter Description Practice Location Reason(s) For Visit Diagnoses Date Provider Providers Copied on Encounter [facility], [address] [facility] [address], [place], [id number], tel:[phone] [facility] No Information 9 Leigh Mcgarry. [address] [facility] [address], [place], [id number], [place]. tel:[phone] [facility], [address] [facility] [address], [place], [id number], [place] tel:[phone] [facility] No Information [address] Lowe LUNCHEONETTE OPERATOR Adam. [address] [facility] [address], [place], [id number], [place]. tel:[phone] OFFICE VISIT [facility] 2 [facility], [address] [facility] [address] [place], [place], [id number], [place] tel:[phone] [facility] diabetes (chief complaint) Type 2 diabetes mellitus with hyperglycemia 8 Lowe LUNCHEONETTE OPERATOR Adam. [address] [facility] [address], [place], [id number], [place]. tel:[phone] Referring Provider: Adam RAINEY, [address] [facility] [address], [place], [address] . tel:[phone] [facility], [address] [facility] [address], [place], [id number], [place] tel:[phone] [facility] No Information 9201 [address] Lowe LUNCHEONETTE OPERATOR Adam. [address] [facility] [address], [place], [id number], [place]. tel:[phone] Referring Provider: Adam RAINEY, [address] [place] [address], [place], [address] . tel:[phone] Family History Family Member Type Diagnosis Age At Onset No Information Payers Payer name Insurance type Covered libertarian ID Sunni cedillo(s) [place] [facility] CI [id number] Social History Type Description Quantity Date Captured Comments Alcohol Use Details Unknown Caffeine Use Details Unknown Tobacco Use Status Smoking Status No Information Sex Male Chief Complaint And Reason For Visit No Information Reason For Referral Reason For Referral No Information Plan Of Treatment Date Type Action Status Goal Lipid panel. Due on due Goal Depression screening. Due on due Goal Pneumococcal vaccine. Due on due Goal Influenza vaccine. Due on due Goal Hemoglobin A1C. Due on due Goal Dental exam. Due on due Goal GFR. Due on due Goal Dilated eye exam. Due on Jan due Goal Urine microalbumin. Due on due Goal Foot exam. Due on 9 due Goal Tdap. Due on due Goal Td vaccine. Due on 19 due Goal H & P. Due on mayte beltre Referral Ordered: Referrals: Endocrinology, Diabetes and Metabolism. Evaluate and treat Appointment date/timeframe: 11/06/2017 ordered History Of Present Illness Encounter Date Complaint History Of Prese nt Illness diabetes Patient did not use medication, return for a follow-up, or use education materials. Associated symptoms include: blurred vision. Additional information: Pt has uncontrolled diabetes and is on Tujeo. Pt says his blood sugars have been in excess of 600.. Functional Status Date Functional Assessmen t No Information Instructions Date Instruction Additional Infor allyn Will review records and schedule appt for DM. htn and prev for two weeks. [facility] also [facility]. Referred pt. to [facility] Endocr[facility]ology. Related to Type 2 diabetes mellitus with hyperglycemia Assessments Type Assessment Date No Information Patient Care Teams Name Effective Dates (start - stop) Status Members No Information
--- OUTSIDE RECORDS SUMMARY | 2024-03-27 14:50 | XMS_ITS | Referral Summary ---
Author Organization [facility] Address [address] [place] [address] Care Team Providers Care Store Person Name Role Phone Zulma Clark MD Primary Care Provider [phone] Allergies No known active allergies Medications doxycycline (Vibramycin) 100 MG capsule Take 100 mg by mouth in the morning and 100 mg before bedtime. Take with at least 8 ounces (large glass) of water, do not lie down for 30 minutes after For 14 days, started 12/16/22. Active Blood Glucose Monitoring Suppl (TaigenStyle Lite) w/Device kit 3 Active PHENobarbital (Luminal) [...] Plan of Treatment Not on file Insurance [facility] Care Teams Store Person Relationship Specialty Start Date End Date Zulma Clark MD [address] [place] [phone] PCP - General Educational Program Assistant 12/17/22
--- NOTE | 2024-03-27 15:06 | ED_ITS ---
HPI - General Adult General Chief complaint: General Medical Stated complaint: high blood sugar Time Seen by Provider: 03/27/24 14:18 Source: patient Mode of arrival: ambulatory Limitations: no limitations History of Present Illness ED Provider: Bnig Thomas NP [facility] narrative: Patient is a 44-year-old male who presents emergency department requesting assistance with methadone dosing. Reports that his methadone clinic is [facility] in [place], he missed his dosing today. States last dosage of methadone was yesterday 105 mg. Denies recreational drug usage of offers no physical complai nts at this time Related Data Allergies Allergy/AdvReac Type Severity Reaction Status Date / Time No Known Allergies Allergy Verified 03/27/24 11:26 Review of Systems Review of Systems: Yes all other systems are reviewed and are negative [facility] Past Medical History Attestation statement: The following information was validated with the patient. Source: old records reviewed Social History Social History Advance Directives: No Advance Directives Information Provided: No Do you have a plan to hurt others: No Plan Physical Exam ED Vital Signs: Vital Signs - 24 hr 03/27/24 11:22 Temperature 98.5 F Pulse Rate 78 Respiratory Rate 18 Blood Pressure 172/113 H Pulse Oximetry 98 Oxygen Delivery Method Room Air BMI result Body Mass Index 27.3 Appearance: Alert.?Oriented to person, place and time. No acute distress.?Normal affect. Eyes: Pupils equal, round and reactive to light.?? CVS: Heart sounds normal. Normal heart rate and rhythm.? Pulses normal.?? Respiratory: No respiratory distress.? Lung sounds clear to auscultation bilaterally?? Skin: Skin warm and dry.? Normal skin color.? Neuro: Moves all extremities spontaneously.Ambulates with normal steady gait. Medical Decision Making Medical Decision Making [facility] Narrative: Patient is a 44-year-old male past medical history of opioid use disorder presenting to emergency department requesting assistance with methadone dosing as per HPI. Nursing staff have contacted [facility] in [place], and last dosage was verified. Order placed for methadone 150 mg here today he will receive a last dose letter, advised to follow up but is clinic for additional dosing. He offers no physical complaints in his physical examination is benign. All ques tions answered. Stable for discharge Differential Diagnosis Differential Diagnoses: The differential diagnosis associated with the present ation includes (See narrative above) External Record Review External record reviewed: Outpatient record Chronic Conditions Patient?s care impacted by: Other (Opioid use disorder) Social Determinants Patient?s care significantly limited by Social Determinants of Health including: Alcoholism and drug addiction in family Discharge Plan Discharge Clinical Impression: Opioid use disorder Patient Disposition: Home, Self-Care Instructions: Opioid Use Disorder (ED) Additional Instructions: You received a single dosing of your methadone here in the emergency department today; 150 mg. Please follow-up accordingly at your methadone clinic for subsequent dosing. You may return to emergency department any new or worsening symptoms or concerns Print Language: Slovak
--- NOTE | 2024-03-27 15:26 | PC.NURSE ---
[facility] @ [facility] called @: [phone] at 1520 last dose confirmation of patient 105 mg on 03/26/2024 @ 0850 information provided by Priscilla Bedoya RN, verification form filled out and faxed to pharmacy @[phone]. Confirmation received from pharmacy file #[id number]
[2024-03-27] MEDS: methADONE HCl 20 MG/2 ML ORAL.CONC 105 MG PO (16:27)
[2024-03-27 16:39] VITALS: BP 172/113; PULSE 78; RESP 18; TEMP 36.9; O2SAT 98
== END 2024-03-27 16:40 | disposition home or self-care (01) ==
PROVIDERS: Emergency Provider Emergency Medicine
DX: F11.20 Opioid dependence, uncomplicated (principal)
CPT/HCPCS: 99282; 99283

== ENCOUNTER 2024-03-30 17:16 | Emergency (ER) | payer OTHER, SELFPAY ==
--- NOTE | ~2024-03-30 | XR_ITS ---
CLINICAL HISTORY: SOB 2 view chest x-ray Comparison: None Findings: The lungs are clear. Bibasilar subsegmental atelectatic changes. Normal size heart. No acute fracture. IMPRESSION: Bibasilar subsegmental atelectatic changes, lungs are otherwise clear. This document has been electronically signed by: Pablo Jesus MD on 03/30/2024 19:07:55
[2024-03-30 17:48] VITALS: BP 160/106; PULSE 93; RESP 18; TEMP 36.6; O2SAT 96; BMI 27.4
--- NOTE | 2024-03-30 17:50 | ED.GENADULT ---
HPI - General Adult General Chief complaint: General Medical Stated complaint: high blood pressure for a few days now Time Seen by Provider: 03/30/24 20:11 Source: patient Mode of arrival: ambulatory Limitations: no limitations History of Present Illness ED Provider: HPI narrative: Patient's history of hypertension used to be taking clonidine in the past for withdrawal and anxiety which he stopped for last 1 month taking lisinopril 10 mg comes here for high blood pressure for last 1 month since he stopped clonidine feels very anxious blood pressure on arrival was 160/106 Related Data Previous Rx's ?Medication ?Instructions ?Recorded clonidine HCl 0.1 mg tablet 0.1 mg PO BID #60 tabs 03/30/24 Allergies Allergy/AdvReac Type Severity Reaction Status Date / Time No Known Allergies Allergy Verified 03/30/24 17:50 Review of Systems Review of Systems: Yes all other systems are reviewed and are negative [facility] Social History Social History Smoked in Last 30 Days: No Use of substances other than those prescribed or required for medical reasons: No Advance Directives: No Advance Directives Information Provided: No Physical Exam ED Vital Signs: Vital Signs - 24 hr 03/30/24 17:48 03/30/24 19:58 03/30/24 20:12 Temperature 97.8 F 97.0 F 98.0 F Pulse Rate 93 75 72 Respiratory Rate 18 17 16 Blood Pressure 160/106 H 136/95 H 144/97 H Pulse Oximetry 96 99 97 Oxygen Delivery Method Room Air Room Air Room Air BMI result Body Mass Index 27.4 Appearance: Alert. Oriented X3. No acute distress. Anxious ENT: Pharynx normal. Oral Mucosa moist Neck: Normal inspection. Neck supple. CVS: Normal heart rate and rhythm. Pulses normal. Respiratory: No respiratory distress. Equal air entry bilateral, no wheezing/rales/rhonchi Abdomen: Soft and nontender. Bowel sounds are present, no mass palpable, no CVA tenderness Skin: Skin warm and dry. Normal skin color. Normal skin turgor. Extremities: No lower extremity edema. No calf tenderness Neuro: Oriented X 3. No motor deficit. Course Course Course Narrative: This is an RME: Additional HPI, ROS, PE not included below will be deferred to primary provider. RME assessment and note performed by: Bernadette Wade PA-C This is a [id number], with a hx of HTN on lisinopril, who presents to the ER with concerns for elevated BP. Reporting some shortness of breath. He states that he has been taking his blood pressure multiple times, noticed that he has had elevated blood pressure readings 150s over 90s. He has an appointment with his primary care physician next week. Plan: Labs, ekg, viral swabs, cxr Medications Administered Discontinued Medications Generic Name Dose Route Start Last Admin Trade Name Esequiel PRN Reason Stop Dose Admin Clonidine HCl 0.1 mg 03/30/24 20:19 03/30/24 20:47 Clonidine Hcl 0.1 Mg Tablet PO 03/30/24 20:20 0.1 mg ONCE ONE Administration Protocol Medical Decision Making Medical Decision Making MDM Narrative: Patient's anxiety and hypertension used to be on clonidine which controlling his anxiety and blood pressure will resume that patient will be following with his PCP next week Lab Data MDM Lab Attestation statement: I reviewed the patient's lab results. 03/30/24 18:30 03/30/24 18:30 Labs: Lab Results 03/30/24 Range/Units 18:30 WBC 5.5 (4.8-10.8) X10*3/uL RBC 4.20 L (4.60-5.80) X10*6/uL Hgb 12.5 L (14.0-18.0) g/dl Hct 37.3 L (42.0-52.0) % MCV 88.8 (80.0-98.0) fL MCH 29.8 (27.0-33.0) pg MCHC 33.5 (31.0-36.0) g/dl RDW 13.1 (11.0-16.0) % Plt Count 152 L (160-400) X10*3/uL MPV 9.5 (9.4-12.4) fL Immature Gran % (Auto) 0.4 (0.0-0.4) % Neut % (Auto) 51.1 (45-73) % Lymph % (Auto) 34.1 (20-40) % Fajardo % (Auto) 9.7 (2-11) % Eos % (Auto) 3.8 (0-4) % Baso % (Auto) 0.9 (0-2) % Lymph # (Auto) 1.9 (1.2-4.9) X10*3/uL Fajardo # (Auto) 0.5 (0.1-1.2) X10*3/uL Eos # (Auto) 0.2 (0.0-0.4) X10*3/uL Baso # (Auto) 0.1 (0.0-0.2) X10*3/uL Abs Immat Gran (auto) 0.02 (0.00-0.03) X10*3/uL Absolute Neuts (auto) 2.8 (2.0-8.3) x10*3/uL Absolute Nucleated RBC 0.000 (0.0-0.012) X10*3/uL Nucleated RBC % (auto) 0.0 (0.0-0.2) /100WBC Sodium 141 (135-145) mmol/L Potassium 3.9 (3.3-5.1) mmol/L Chloride 106 (96-108) mmol/L Carbon Dioxide 27 (22-29) mmol/L Anion Gap 12 (12-20) BUN 12 (9-16) mg/dL Creatinine 1.00 (0.5-1.4) mg/dL Estim Creat Clear Calc 93.1 Estimated GFR > 60 Random Glucose 86 (60-115) mg/dL Calcium 8.5 (8.4-10.2) mg/dL Magnesium 1.6 (1.6-2.6) mg/dL Total Bilirubin 0.2 (0.0-1.0) mg/dL Direct Bilirubin < 0.2 (0.0-0.5) mg/dL AST 21 (5-37) U/L ALT 24 (0-40) U/L Alkaline Phosphatase 55 (39-117) U/L Troponin I High Sens < 2.7 (<3.5-35.0) ng/L B-Natriuretic Peptide 34 (<100) pg/mL Total Protein 7.3 (6.5-8.0) g/dL Albumin 4.1 (3.5-5.0) g/dL Influenza Type A (PCR) NEGATIVE (Negative) Influenza Type B (PCR) NEGATIVE (Negative) RSV RNA Qual (PCR) NEGATIVE (Negative) SARS-CoV-2 RNA (RT-PCR) NEGATIVE (Negative) Discharge Plan Discharge Clinical Impression: Hypertension Patient Disposition: Home, Self-Care Instructions: Chronic Hypertension (ED) Additional Instructions: Continue take your lisinopril Will add clonidine for blood pressure and anxiety control Follow up with your PCP as scheduled Normal blood pressure should be less than 135/85 Prescriptions: New clonidine HCl 0.1 mg tablet 0.1 mg PO BID Qty: 60 0RF Interventions: ED Discharge Assessment Last Done: 03/30/24 20:51 Discharge Date/Time: 03/30/24 20:52 Print Language: Wallisian
--- NOTE | 2024-03-30 17:59 | ECG_ITS ---
Test Reason : sob Blood Pressure : */* mmHG Vent. Rate : 80 BPM Atrial Rate : 80 BPM P-R Int : 134 ms QRS Dur : 76 ms QT Int : 384 ms P-R-T Axes : 33 25 24 degrees QTcB Int : 442 ms Normal sinus rhythm Normal ECG No previous ECGs available Referred By: Bernadette Wade Electronically Signed By: ASHER SANCHEZ
[2024-03-30 18:35] LABS: MANUAL DIFF FLAG NO
[2024-03-30 18:39] LABS: Basophils Absolute Auto 0.1 X10*3/uL (0.0-0.2); Basophils Percent Auto 0.9 % (0-2); Eosinophils Absolute Auto 0.2 X10*3/uL (0.0-0.4); Eosinophils Percent Auto 3.8 % (0-4); Hematocrit 37.3 % (42.0-52.0); Hemoglobin 12.5 g/dl (14.0-18.0); Imm Gran Abs Auto 0.02 X10*3/uL (0.00-0.03); Imm Gran Pct Auto 0.4 % (0.0-0.4); Lymphocytes Absolute Auto 1.9 X10*3/uL (1.2-4.9); Lymphocytes Percent Auto 34.1 % (20-40); Mean Corpuscular HGB Conc 33.5 g/dl (31.0-36.0); Mean Corpuscular Hemoglobin 29.8 pg (27.0-33.0); Mean Corpuscular Volume 88.8 fL (80.0-98.0); Mean Platelet Volume 9.5 fL (9.4-12.4); Monocytes Absolute Auto 0.5 X10*3/uL (0.1-1.2); Monocytes Percent Auto 9.7 % (2-11); Neutrophils Absolute Auto 2.8 x10*3/uL (2.0-8.3); Neutrophils Percent Auto 51.1 % (45-73); Platelet Count 152 X10*3/uL (160-400); Red Cell Distribution Width 13.1 % (11.0-16.0); White Blood Count 5.5 X10*3/uL (4.8-10.8)
[2024-03-30 18:50] LABS: Alanine Aminotransferase 24 U/L (0-40); Albumin Level 4.1 g/dL (3.5-5.0); Alkaline Phosphatase 55 U/L (39-117); Anion Gap 12 (12-20); Aspartate Amino Transferase 21 U/L (5-37); Bilirubin Direct < 0.2 mg/dL (0.0-0.5); Bilirubin Total 0.2 mg/dL (0.0-1.0); Blood Urea Nitrogen 12 mg/dL (9-16); Calcium 8.5 mg/dL (8.4-10.2); Carbon Dioxide 27 mmol/L (22-29); Chloride 106 mmol/L (96-108); Creatinine Clr Calc Pharmacy 93.1; Estimated Glomerular Filt Rate > 60; Glucose Random 86 mg/dL (60-115); Magnesium 1.6 mg/dL (1.6-2.6); Potassium 3.9 mmol/L (3.3-5.1); Sodium 141 mmol/L (135-145); Total Protein 7.3 g/dL (6.5-8.0)
[2024-03-30 18:55] LABS: B Type Natriuretic Peptide 34 pg/mL (<100)
[2024-03-30 19:00] LABS: Troponin-I High Sensitivity < 2.7 ng/L (<3.5-35.0)
[2024-03-30 19:14] LABS: Influenza A PCR NEGATIVE (Negative); Influenza B PCR NEGATIVE (Negative); Resp Syncy Virus RNA Qual PCR NEGATIVE (Negative); SARS COV2 PCR INHOUSE NEGATIVE (Negative)
[2024-03-30 19:58] VITALS: BP 136/95; PULSE 75; RESP 17; TEMP 36.1; O2SAT 99
[2024-03-30 20:12] VITALS: BP 144/97; PULSE 72; RESP 16; TEMP 36.7; O2SAT 97
[2024-03-30 20:47] VITALS: BP 144/97
[2024-03-30] MEDS: cloNIDine HCL 0.1 MG TABLET PO (20:47)
[2024-03-30 20:51] VITALS: BP 144/97; PULSE 94; RESP 16; TEMP 36.7; O2SAT 97
== END 2024-03-30 20:52 | disposition home or self-care (01) ==
PROVIDERS: Physician Assistant Medical; Emergency Provider Internal Medicine
DX: I10 Essential (primary) hypertension (principal); F41.9 Anxiety disorder, unspecified; R06.02 Shortness of breath; Z03.818 Encounter for observation for suspected exposure to other biological agents ruled out; Z79.899 Other long term (current) drug therapy
CPT/HCPCS: 0241U; 71046; 80048; 80076; 83735; 83880; 84484; 85025; 93005; 99283; 99284

== ENCOUNTER → 2024-03-30 17:58 | Outpatient (BNV) | payer OTHER, SELFPAY | PROVIDERS: Visit Provider Student in an Organized Health Care Education/Training Program | DX: J98.11 Atelectasis (principal) | CPT/HCPCS: 71046 ==

== ENCOUNTER → 2024-03-30 17:59 | Outpatient (BNV) | payer OTHER, SELFPAY | PROVIDERS: Emergency Provider Internal Medicine; Visit Provider Internal Medicine | DX: R06.02 Shortness of breath (principal) | CPT/HCPCS: 93010 ==